=== PATIENT | male | born 1995 | race Hispanic/Latino ===

== ENCOUNTER 2023-06-16 09:20 | Emergency (ER) | payer BC, SELFPAY | END 2023-06-16 12:10 | disposition home or self-care (01) | LOC: CSHERS 09:20 | DX: H57.12 Ocular pain, left eye (principal) | CPT/HCPCS: 99283 ==

== ENCOUNTER 2023-09-23 19:14 | Emergency (ER) | payer SELFPAY ==
[2023-09-23 20:37] LABS: Bilirubin Neg (Negative); Blood, Urine 10 (Negative); Clarity Cloudy (Clear); Glucose, Urine (Dipstick) Normal (Negative); Ketone, Urine 15 mg/dL (Negative); Leukocyte Negative (Negative); Nitrite Negative (Negative); Protein, Urine (Dipstick) Negative (Neg-Trace); Urobilinogen Normal mg/dL (Less than 2)
[2023-09-23] MEDS ORDERED: Ondansetron PF 4 MG/2 ML Vial ONE (20:37)
[2023-09-23] MEDS ORDERED: Morphine 4 MG/ML VIAL ONE (20:37)
[2023-09-23 20:45] LABS: #Basophils 0.1 10x3/uL (0.0-0.2); #Monocytes 0.6 10x3/uL (0.0-1.1); %Basophils 0.4 % (0.0-2.0); %Eosinophils 0.2 % (0.0-6.0); %Lymphocytes 8.3 % (18.0-47.0); %Monocytes 4.5 % (0.0-10.0); %Neutrophils 86.3 % (40.0-75.0); Hematocrit 46.3 % (38.8-50.0); Hemoglobin 15.9 g/dL (13.5-17.5); Mean Corpuscular HGB CONC 34.3 g/dL (32.0-36.0); Mean Corpuscular Hemoglobin 32.5 pg (27.0-33.0); Mean Corpuscular Volume 94.7 fl (81.2-95.1); Mean Platelet Volume 10.9 fl (7.4-10.4); Platelet Count 207 10x3/uL (150-450); RBC Distribution Width 11.8 % (11.5-14.5); Red Blood Cell (RBC) Count 4.89 10x6/uL (4.32-5.72); White Blood Cell (WBC) Count 12.7 10x3/uL (3.5-10.5)
[2023-09-23 20:47] LABS: Bacteria/HPF Rare-Few HPF (None Seen); CAUTI Indications for Culture < 2yrs of age; RBC/HPF 0-3 HPF (0-3); WBC/HPF 0-3 HPF (0-3)
[2023-09-23 20:49] LABS: Urine Culture Reflex Yes Yes
[2023-09-23 20:56] LABS: ALT (SGPT) 26 U/L (8-55); AST (SGOT) 22 U/L (5-34); Albumin 4.7 g/dL (3.5-5.0); Alkaline Phosphatase 73 U/L (40-110); Anion Gap 17 mmol/L (10-20); BUN (Urea Nitrogen) 10 mg/dL (8.9-20.6); Bilirubin, Total 0.4 mg/dL (0.2-1.2); Calc. Creatinine Clearance 0 mL/min (70-130); Calcium 9.2 mg/dL (7.8-10.44); Carbon Dioxide 26 mmol/L (22-29); Chloride 99 mmol/L (98-107); Estimated GFR 119; Globulin 3.4 g/dL (2.4-3.5); Glucose 113 mg/dL (70-105); Potassium 3.5 mmol/L (3.5-5.1); Protein, Total 8.1 g/dL (6.0-8.3); Sodium 138 mmol/L (136-145)
[2023-09-23] MEDS ORDERED: HYDROcodone/Acetaminophen 10/325 mg Tablet ONE (21:44)
[2023-09-24 13:35] LABS: Chlam.trachomatis by PCR,Urine Not Detected (NotDetected); GC N.gonorrhoeae PCR,UrineVOID Not Detected (NotDetected)
== END 2023-09-23 21:49 | disposition home or self-care (01) ==
LOC: CSHERS 19:14
DX: N50.9 Disorder of male genital organs, unspecified (principal)
CPT/HCPCS: 76870; 80053; 81001; 82105; 83615; 84702; 85025; 87086; 87491; 87591; 93976; 96374; 96375; J2270; J2405

== ENCOUNTER 2025-08-28 07:21 | Outpatient (CLI) | payer BC ==
[2025-08-28] MEDS ORDERED: Iopamidol 300 61% 100 ML VIAL FS ONE (11:03)
== END 2025-08-28 07:22 | disposition home or self-care (01) ==
LOC: CSHCT 07:21
PROVIDERS: ATTEND Internal Medicine
DX: C62.90 Malignant neoplasm of unspecified testis, unspecified whether descended or undescended (principal); R91.8 Other nonspecific abnormal finding of lung field; M84.58XA Pathological fracture in neoplastic disease, other specified site, initial encounter for fracture; Z90.79 Acquired absence of other genital organ(s); K59.00 Constipation, unspecified
CPT/HCPCS: 71260; 74177